=== PATIENT | female | born 1950 | race Caucasian/White ===

== ENCOUNTER 2023-03-09 02:16 | Emergency (ER) | payer MEDICARE, OTHER, SELFPAY ==
[2023-03-09 02:22] VITALS: BP 160/91; PULSE 70; RESP 16; TEMP 36.4; O2SAT 100; BMI 23.8
--- NOTE | 2023-03-09 02:42 | PC.NURSE ---
pt presents to ED because patient states that last night around 7pm she developed n/v/d and left sided lower quadrant pain and she feels bloated. pt states she has thrown up about 5 times today. pt does not have her gallbladder. when viewing patients medication history, she is prescribed donepezil which patient states that she only takes it when she remembers but has been taking it more frequently the last couple days and the most common side effects are n/v/d.
--- NOTE | 2023-03-09 02:43 | ED_ITS ---
HPI - Nausea/Vomiting/Diarrhea General Chief complaint: Nausea/Vomiting/Diarrhea Stated complaint: nauseous/vomitting Time Seen by Provider: 03/09/23 02:39 Source: patient Mode of arrival: walk-in History of Present Illness HPI Narrative: patient states she became ill around 11 pm with recurrent nausea, vomiting and diarrhea. Still feels nauseated. no hematemesis or fever. MD elicited complaint: Reports nausea, vomiting and diarrhea Related Data Home Medications Medication Instructions Recorded Confirmed donepezil 10 mg tablet 10 mg PO QDAY 03/09/23 03/09/23 losartan 50 mg tablet 50 mg PO QDAY 03/09/23 03/09/23 Review of Systems ROS Status of ROS 10 or more systems reviewed and unremarkable except as noted in history and below [facility] Social History Smoking status: Never smoker Exam Constitutional Vital Signs, click to edit/add: Last Vital Signs Temp 97.6 F 03/09/23 02:22 Pulse 70 03/09/23 02:22 Resp 16 03/09/23 02:22 BP 160/91 H 03/09/23 02:22 Pulse Ox 100 03/09/23 02:22 O2 Del Method Room Air 03/09/23 02:22 Common normals: no apparent distress, average body habitus, oriented x3, no limitations, healthy appearing and alert Eye Common normals: EOMs intact bilaterally and conjunctivae normal Respiratory Common normals: normal respiratory effort, no retractions, no use of accessory muscles and clear to auscultation bilaterally Cardio Common normals: regular rate, regular rhythm, S1 normal heart sound and S2 normal heart sound GI Common normals: Normal to inspection, nondistended, normoactive bowel sounds present, soft to palpation and non-tender Extremity Common normals: normal to inspection and full ROM Neuro Common normals: oriented x3, CN's II-XII intact bilaterally, moves all extremities, no focal motor deficits and no sensory deficits noted Psych Appearance: grossly normal Course Vital Signs Vital signs: Vital Signs Temperature 97.6 F 03/09/23 02:22 Pulse Rate 70 03/09/23 02:22 Respiratory Rate 16 03/09/23 02:22 Blood Pressure 160/91 H 03/09/23 02:22 Pulse Oximetry 100 03/09/23 02:22 Oxygen Delivery Method Room Air 03/09/23 02:22 Temperature 97.6 F 03/09/23 02:22 Pulse Rate 70 03/09/23 02:22 Respiratory Rate 16 03/09/23 02:22 Blood Pressure 160/91 H 03/09/23 02:22 Pulse Oximetry 100 03/09/23 02:22 Oxygen Delivery Method Room Air 03/09/23 02:22 MDM - Nausea/Vomiting/Diarrhea MDM Narrative Medical decision making narrative: patient presents after recurrent vomiting and diarrhea. Patient found to be dehydrated but also had hyperglycemia of 203. Not known to be diabetic. She is feeling better after hydration and zofran and requesting to go home. Discharged with a prescription of zofran and advised to follow up with her doctor to have her blood sugar rechecked also Lab Data Labs: Lab Results 03/09/23 03/09/23 Range/Units 02:10 04:33 WBC 15.9 H (4.0-11.0) 10^3/uL RBC 4.47 (4.20-5.40) 10^6/uL Hgb 13.7 (12.0-16.0) g/dL Hct 40.7 (36.0-48.0) % MCV 91.1 (81.0-99.0) fL MCH 30.6 (26.7-34.0) pg MCHC 33.7 (29.9-35.2) g/dL RDW 12.0 (11.0-15.0) % Plt Count 309 (150-450) 10^3/uL MPV 9.9 (9.5-13.5) fL Neut % (Auto) 83.8 H (43.0-75.0) % Lymph % (Auto) 11.6 L (20.5-60.0) % [place] % (Auto) 3.5 (1.7-12.0) % Eos % (Auto) 0.4 L (0.9-7.0) % Baso % (Auto) 0.3 (0.2-2.0) % Neut # (Auto) 13.3 H (1.4-6.5) 10^3/uL Lymph # (Auto) 1.8 (1.2-3.8) 10^3/uL [place] # (Auto) 0.6 (0.3-0.8) 10^3/uL Eos # (Auto) 0.1 (0.0-0.7) 10^3/uL Baso # (Auto) 0.0 (0.0-0.1) 10^3/uL Abs Immat Gran (auto) 0.07 H (0.00-0.03) 10^3/uL Imm/Tot Granulo (auto) 0.4 (0.0-0.5) % Sodium 139 (136-145) mmol/L Potassium 3.5 (3.5-5.1) mmol/L Chloride 101 (98-107) mmol/L Carbon Dioxide 28.2 (21.0-32.0) mmol/L Anion Gap 13.3 BUN 16.0 (7.0-18.0) mg/dL Creatinine 0.84 (0.55-1.02) mg/dL Est GFR ( Amer) >60 (>=60) Est GFR (Non-Af Amer) >60 (>=60) BUN/Creatinine Ratio 19.0 Glucose 203 H (74-106) mg/dL Lactate 1.3 (0.4-2.0) mmol/L Calcium 10.0 (8.5-10.1) mg/dL Total Bilirubin 0.5 (0.2-1.0) mg/dL AST 48 H (15-37) U/L ALT 44 (14-59) U/L Alkaline Phosphatase 85 (46-116) U/L Total Protein 7.0 (6.4-8.2) g/dL Albumin 4.0 (3.4-5.0) g/dL Globulin 3.0 g/dL Albumin/Globulin Ratio 1.3 Urine Color Yellow (YELLOW) Urine Clarity Clear (CLEAR) Urine pH 6.0 (5.0-9.0) Ur Specific [place] >=1.030 A (1.005-1.025) Urine Protein Negative (NEG/TRACE) mg/dL Urine Glucose (UA) Negative (NEGATIVE) mg/dL Urine Ketones >=80 A (NEGATIVE) mg/dL Urine Occult Blood Negative (NEGATIVE) Urine Nitrite Negative (NEGATIVE) Urine Bilirubin Negative (NEGATIVE) Urine Urobilinogen 1.0 (0.2-1.0) EU/dL Ur Leukocyte Esterase Trace A (NEGATIVE) Urine RBC 0-2 (0-2) #/HPF Urine WBC 0-2 A (NONE SEEN) #/HPF Ur Squamous Epith Cells Few A (NONE/RARE) #/LPF Urine Crystals None seen (None Seen) #/HPF Urine Bacteria Trace A (NONE SEEN) #/HPF Urine Casts None seen (NONE SEEN) #/LPF Urine Mucus Moderate A (NONE SEEN) Ur Culture Indicated? No Discharge Plan Discharge Chief Complaint: Nausea/Vomiting/Diarrhea Clinical Impression: Gastroenteritis Patient Disposition: Home, Self-Care Prescriptions / Home Meds: No Action donepezil 10 mg tablet 10 mg PO QDAY losartan 50 mg tablet 50 mg PO QDAY Instructions: Gastroenteritis (ED) Additional Instructions: follow up with your doctor in the next couple of days for recheck and to have your blood sugar rechecked Stand Alone Forms: Portal Instructions Referrals: Physician,Non-Staff, MD [Primary Care Provider] - 1 week
[2023-03-09 02:51] LABS: Basophils Percent Auto 0.3 % (0.2-2.0); Eosinophils Absolute Auto 0.1 10^3/uL (0.0-0.7); Eosinophils Percent Auto 0.4 % (0.9-7.0); Hematocrit 40.7 % (36.0-48.0); Hemoglobin 13.7 g/dL (12.0-16.0); Immature Granulocytes Abs Auto 0.07 10^3/uL (0.00-0.03); Immature Granulocytes Pct Auto 0.4 % (0.0-0.5); Lymphocytes Absolute Auto 1.8 10^3/uL (1.2-3.8); Lymphocytes Percent Auto 11.6 % (20.5-60.0); Mean Corpuscular HGB Conc 33.7 g/dL (29.9-35.2); Mean Corpuscular Hemoglobin 30.6 pg (26.7-34.0); Mean Corpuscular Volume 91.1 fL (81.0-99.0); Mean Platelet Volume 9.9 fL (9.5-13.5); Monocytes Absolute Auto 0.6 10^3/uL (0.3-0.8); Monocytes Percent Auto 3.5 % (1.7-12.0); Neutrophils Absolute Auto 13.3 10^3/uL (1.4-6.5); Neutrophils Percent Auto 83.8 % (43.0-75.0); Platelet Count 309 10^3/uL (150-450); Red Blood Count 4.47 10^6/uL (4.20-5.40); White Blood Count 15.9 10^3/uL (4.0-11.0)
[2023-03-09] MEDS: ONDANSETRON PF 4 MG/2 ML VIAL IV (02:55)
[2023-03-09] MEDS: 0.9 % SODIUM CHLORIDE 1,000 ML 999 ML IV (02:55)
[2023-03-09 03:07] LABS: Alanine Aminotransferase 44 U/L (14-59); Albumin Globulin Ratio 1.3; Alkaline Phosphatase 85 U/L (46-116); Anion Gap 13.3; Aspartate Amino Transferase 48 U/L (15-37); Bilirubin Total 0.5 mg/dL (0.2-1.0); Carbon Dioxide 28.2 mmol/L (21.0-32.0); Chloride 101 mmol/L (98-107); Estimated GFR (African America >60 (>=60); Estimated GFR (Non-African Ame >60 (>=60); Glucose 203 mg/dL (74-106); Potassium 3.5 mmol/L (3.5-5.1); Sodium 139 mmol/L (136-145)
[2023-03-09 03:10] LABS: Lactate/Lactic Acid 1.3 mmol/L (0.4-2.0)
[2023-03-09 04:40] LABS: Bilirubin Urine NEGATIVE (NEGATIVE); Blood Urine NEGATIVE (NEGATIVE); Clarity Urine CLEAR (CLEAR); Color Urine YELLOW (YELLOW); Glucose Urine UA NEGATIVE (NEGATIVE); Ketones Urine >=80 mg/dL (NEGATIVE); Leukocyte Esterase Urine TRACE (NEGATIVE); Nitrite Urine NEGATIVE (NEGATIVE); Protein Urine NEGATIVE (NEG/TRACE); Specific Gravity Urine >=1.030 (1.005-1.025)
[2023-03-09 04:43] LABS: Urine Microscopic Indicated YES
[2023-03-09 04:49] LABS: Bacteria Urine TRACE #/HPF (NONE SEEN); Cast Seen? NONE SEEN #/LPF (NONE SEEN); Crystals Seen? None Seen #/HPF (None Seen); Mucus Urine MODERATE (NONE SEEN); RBC Urine 0-2 #/HPF (0-2); Squamous Epithelial Cell Urine FEW #/LPF (NONE/RARE); Urine Culture Indicated NO; WBC Urine 0-2 #/HPF (NONE SEEN)
== END 2023-03-09 05:10 | disposition home or self-care (01) ==
PROVIDERS: Emergency Provider Internal Medicine
DX: K52.9 Noninfective gastroenteritis and colitis, unspecified (principal); E86.0 Dehydration; R73.9 Hyperglycemia, unspecified; Z79.899 Other long term (current) drug therapy
CPT/HCPCS: 36415; 80053; 81001; 83605; 85025; 99284

== ENCOUNTER 2025-03-22 11:59 | Outpatient (OUT) | payer MEDICARE, OTHER, SELFPAY ==
[2025-03-22 12:33] LABS: Hematocrit 43.4 % (36.0-48.0); Hemoglobin 15.1 g/dL (12.0-16.0); Immature Granulocytes Abs Auto 0.11 10^3/uL (0.00-0.03); Immature Granulocytes Pct Auto 0.7 % (0.0-0.5); Lymphocytes Absolute Auto 2.3 10^3/uL (1.2-3.8); Mean Corpuscular HGB Conc 34.8 g/dL (29.9-35.2); Mean Corpuscular Hemoglobin 32.1 pg (26.7-34.0); Mean Corpuscular Volume 92.3 fL (81.0-99.0); Platelet Count 493 10^3/uL (150-450); Red Blood Count 4.70 10^6/uL (4.20-5.40); White Blood Count 15.7 10^3/uL (4.0-11.0)
[2025-03-22 12:49] LABS: Glucose Urine UA NEGATIVE (NEGATIVE)
[2025-03-22 13:20] LABS: Anion Gap 9.5; Blood Urea Nitrogen 13.0 mg/dL (7.0-18.0); Calcium 9.3 mg/dL (8.5-10.1); Carbon Dioxide 30.7 mmol/L (21.0-32.0); Chloride 103 mmol/L (98-107); Estimated GFR (African America >60 (>=60 mL/min/1.73m^2); Estimated GFR (Non-African Ame >60 (>=60 mL/min/1.73m^2); Glucose 114 mg/dL (74-106); Potassium 3.2 mmol/L (3.5-5.1); Sodium 140 mmol/L (136-145); TSH W/ REFLEX FT4 0.822 uIU/mL (0.358-3.740)
== END 2025-03-22 12:00 | disposition home or self-care (01) ==
LOC: LAB 12:09
PROVIDERS: PCP Family Medicine; Visit Provider Family Medicine
DX: I10 Essential (primary) hypertension (principal); I95.9 Hypotension, unspecified; R53.83 Other fatigue
CPT/HCPCS: 36415; 80048; 81003; 84443; 85025